=== PATIENT | female | born 1980 | race Caucasian/White ===

== ENCOUNTER 2017-09-28 22:18 | Emergency (ER) | payer SELFPAY ==
[2017-09-28 22:25] VITALS: BP 122/80
[2017-09-28] MEDS ORDERED: metroNIDAZOLE TAB* 250 MG PO ONE (23:42)
[2017-09-28] MEDS ORDERED: cefTRIAXone VIAL(*) 250 MG VIAL IM ONE (23:42)
[2017-09-28] MEDS ORDERED: Azithromycin TAB* 250 MG PO ONE (23:42)
[2017-09-29 00:33] LABS: Hematocrit 30 % (35-47); Hemoglobin 8.4 g/dl (12.0-16.0); Mean Corpuscular HGB Conc 29 g/dl (31-36); Mean Corpuscular Hemoglobin 15 pg (27-31); Mean Corpuscular Volume 51 fL (80-97); Red Blood Count 5.74 10^6/ul (4.0-5.4)
[2017-09-29 00:36] LABS: EGFR Non-African American 108.9 (>60)
[2017-09-29 01:14] LABS: ABS Basophils 0.1 10^3/ul (0-0.2); ABS Eosinophils 0.1 10^3/ul (0-0.6); ABS Lymphocytes 2.3 10^3/ul (1.0-4.8); ABS Monocytes 0.5 10^3/ul (0-0.8); ABS Nucleated RBC 0 10^3/ul; Lymphocyte % 33.6 % (25-47); Mean Platelet Volume 9 um3 (7.4-10.4); Nucleated Red Blood Cells % 0; Platelet Count 412 10^3/ul (150-450); Red Cell Distribution Width 22 % (10.5-15)
[2017-09-29] MEDS ORDERED: Potassium Chlor TAB* 20 MEQ TAB.ER PO ONE (02:49)
[2017-09-29 03:53] LABS: Urine Appearance Cloudy; Urine Blood 1+ (Negative); Urine Color Yellow; Urine Ketones Trace (Negative); Urine Protein Negative (Negative); Urine Specific Gravity 1.017 (1.010-1.030); Urine Urobilinogen Negative (Negative)
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
== END 2017-09-29 03:55 | disposition home or self-care (01) ==
LOC: ED 22:18
DX: T74.21XA Adult sexual abuse, confirmed, initial encounter (principal)
CPT/HCPCS: 36415; 80053; 81003; 81015; 84702; 85025; 85060; 86703; 86706; 86803; 87086; 87340; 96372; 99283; A9270-GY; J0696